=== PATIENT | male | born 1975 | race Caucasian/White ===

== ENCOUNTER 2019-09-19 12:36 | Inpatient (IN) | payer OTHER ==
[~2019-09-19] VITALS: Ht 175.2 cm; Wt 124.0 kg
[~2019-09-19 12:36] MED LIST: ASPIRIN CHEWABL81 MG PO; AUGMENTIN 875 M1 TAB PO; BACTROBAN OINT22 GM PO; BIAXIN FILMTAB250 MG PO; COZAAR50 M1 PO; CRESTOR10 M1 PO; FLONASE ALLERG9.9 ML NAS; KEFLEX500 MG PO; METFORMIN XR500 MG PO; NORVASC10 MG PO; PREVACID30 M2 PO; VICODIN 500 MG-1 TAB PO
[2019-09-19 12:38] VITALS: BP 168/61
[2019-09-19 13:01] LABS: BASO # 0.1 10*3/uL (0.0-0.1); BASO % 0.7 % (0.0-1.0); EOS # 0.2 10*3/uL (0.0-0.4); HEMATOCRIT 46.3 % (42.0-52.0); HEMOGLOBIN 16.2 g/dl (14.0-18.0); LYMPH # 2.4 10*3/uL (1.3-4.4); LYMPH % 34.8 % (27.0-41.0); MEAN CELL VOLUME 92.2 fl (80.0-94.0); MEAN CORPUSCULAR HGB 32.3 pg (27.0-31.0); MEAN PLATELET VOLUME 8.7 fl (9.6-12.3); MONO # 0.6 10*3/uL (0.1-1.0); MONO % 7.9 % (3.0-9.0); NEUT # 3.7 10*3/uL (2.3-7.9); NEUT % 53.2 % (47.0-73.0); PLATELET COUNT AUTOMATED 279 10*3/uL (130-400); RED BLOOD COUNT 5.02 10*6/uL (4.50-5.90); RED CELL DISTRI WIDTH 12.4 % (0-14.5)
[2019-09-19 13:18] LABS: ALBUMIN 4.1 gm/dl (3.1-4.5); ALKALINE PHOSPHATASE 58 U/L (45-117); BUN 8 mg/dl (7-24); CHLORIDE 104 mmol/L (98-107); CREATININE 0.86 mg/dL (0.70-1.30); POTASSIUM 3.5 mmol/L (3.5-5.1); SGOT/AST 17 IU/L (3-35); SGPT/ALT 28 U/L (12-78); SODIUM 138 mmol/L (136-145); TOTAL PROTEIN 8.3 gm/dL (6.4-8.2)
[2019-09-19 13:21] LABS: ACT PARTIAL THROMBO TIME 26.8 SECONDS (20.0-32.1); INTERNATIONAL NORM RATIO 0.9 (2.0-3.5)
[2019-09-19 13:24] LABS: LIPASE 77 U/L (73-393)
[2019-09-19 13:24] LABS: TROPONIN I < 0.015 ng/ml (<0.045)
--- NOTE | 2019-09-19 13:30 | NUR ---
ALL TESTING BUT ESR HAS RETURNED. NO CHANGE IN CONDITION. NO ABNORMALITY OBSERVED THUS FAR ON BEDSIDE MONITOR BESIDES BASELINE DYSRTHYMIA SEEN ON EKG.
[2019-09-19 14:00] VITALS: BP 166/62
--- NOTE | 2019-09-19 15:10 | NUR ---
A 44, admitted to 5E, under the services of BABITA Sifuentes DO with a diagnosis of PALPITATIONS. Chief complaint is PALPITATIONS WHICH STARTED LAST NIGHT ABOUT MIDNIGHT. DENIES CHEST PAIN, NAUSEA OR DIZZINESS WITH PALPITATIONS. JUST STATES IT WAS HAPPENING FREQUENTLY AND IT CONCERNED HIM. STATES THAT HE AND HIS WERE AT THE [place] LAST NIGHT. STATES HE DOES DRINK A LOT OF COFFEE AND ALSO HAD 3 GLASSES OF CAFFEINATED DRINKS AT [facility]. Patient arrived via stretcher from ER. Monitor applied. Initial assessment completed. Vital signs taken and recorded. See assessment for past medical history, medications and allergies. Patient and/or family oriented to unit. [facility] VISITATION POLICY REVIEWED. NASH ANDRES
[2019-09-19 15:14] VITALS: BP 144/66
[2019-09-19] MEDS ORDERED: LEVOTHYROXINE50 MCG PO (15:20)
[2019-09-19] MEDS ORDERED: VITAMIN D35000 UNIT PO (15:21)
[2019-09-19] MEDS ORDERED: METOPROLOL SUCC50 M1 PO (15:21)
[2019-09-19] MEDS ORDERED: MAGNESIUM250 M1 PO (15:22)
--- NOTE | 2019-09-19 15:31 | NUR ---
Notified Carolina Umana that pt is here and med rec updated.
[2019-09-19 16:00] VITALS: BP 144/66; BP 156/85
--- NOTE | 2019-09-19 16:51 | NUR ---
ANSWERING SERVICE WAS NOTIFIED OF DR. KITCHEN CONSULT. RESPONSE OF NOTIFICATION WAS MESSAGE REGARDING CONSULT LEFT WITH AGENT AND THEY STATED THEY WOULD FORWARD THE MESSAGE TO THE PHYSICAN. DR. KITCHEN IS PHYSICAN FORK ASSEMBLER. NASH ANDRES
--- NOTE | 2019-09-19 18:20 | NUR ---
DR. Martinez in and examined pt. States that pt can go home. States there is no reason to keep pt. States to continue the same medications as pt was on at home and he will arrive for outpatient monitor and echo for pt. States he reviewed ekg and monitor strips and other than some PAC's there is nothing abnormal. I spoke with Dr. Cherry. Pt was being seen by Carolina Umana today but she is gone for the day. Dr. Cherry states he is covering Carolina's pt. I notified him of Dr. Martinez's statements that he can be discharged.
--- NOTE | 2019-09-19 18:34 | NUR ---
Dr. Cherry called me back and states they are keeping pt overnight and will dc in AM. States pt just came in and they will keep him over night.
--- NOTE | 2019-09-19 18:37 | NUR ---
I notified pt that I spoke with resident Dr. Cherry who spoke with Dr. Pringle they would like to keep pt overnight just to observe and they will dc tomorrow morning. Pt is agreeable to this.
[2019-09-19 20:00] VITALS: BP 130/64; BP 131/64
[2019-09-20] VITALS: BP 108/52
--- NOTE | 2019-09-20 02:36 | NUR ---
24 HR chart check completed.
[2019-09-20 06:42] LABS: BASO # 0.1 10*3/uL (0.0-0.1); BASO % 0.9 % (0.0-1.0); EOS # 0.3 10*3/uL (0.0-0.4); EOS % 4.4 % (1.0-4.0); HEMATOCRIT 44.5 % (42.0-52.0); HEMOGLOBIN 15.5 g/dl (14.0-18.0); LYMPH # 2.5 10*3/uL (1.3-4.4); LYMPH % 35.1 % (27.0-41.0); MEAN CELL VOLUME 92.3 fl (80.0-94.0); MEAN CORPUSCULAR HGB 32.2 pg (27.0-31.0); MEAN CORPUSCULAR HGB CONC 34.8 g/dl (33.0-37.0); MEAN PLATELET VOLUME 8.8 fl (9.6-12.3); MONO # 0.6 10*3/uL (0.1-1.0); NEUT # 3.5 10*3/uL (2.3-7.9); NEUT % 50.3 % (47.0-73.0); PLATELET COUNT AUTOMATED 260 10*3/uL (130-400); RED BLOOD COUNT 4.82 10*6/uL (4.50-5.90); RED CELL DISTRI WIDTH 12.4 % (0-14.5)
[2019-09-20 07:02] LABS: ALBUMIN 3.4 gm/dl (3.1-4.5); BUN 11 mg/dl (7-24); CHLORIDE 103 mmol/L (98-107); CHOLESTEROL 114 mg/dL (<200); CREATININE 0.83 mg/dL (0.70-1.30); PHOSPHOROUS 3.5 mg/dL (2.5-4.9); POTASSIUM 3.8 mmol/L (3.5-5.1); SGOT/AST 12 IU/L (3-35); SGPT/ALT 26 U/L (12-78); SODIUM 138 mmol/L (136-145); TOTAL PROTEIN 7.4 gm/dL (6.4-8.2); TRIGLYCERIDES 76 mg/dl (<150); VLDL CHOLESTEROL 15 mg/dL (6-40)
[2019-09-20 07:08] LABS: ALKALINE PHOSPHATASE 51 U/L (45-117); FREE T4 0.95 ng/dl (0.76-1.46); HDL CHOLESTEROL 40 mg/dl (40-60); LDL CHOLESTEROL 59 mg/dL (9-159)
[2019-09-20 07:49] LABS: VITAMIN D, 25-HYDROXY 27.2 ng/mL (30-100)
[2019-09-20] MEDS ORDERED: DEBROX15 ML OT (09:09)
--- NOTE | 2019-09-20 09:10 | NUR ---
PT SITTING UP IN BED. ANXIOUS TO GO HOME. RESP-EASY AND REGULAR. DENIES DIZZINESS OR PALPITATIONS. PT STATES HE RECENTLY HAD INNER EAR INFECTION, HAD MEDICATION. STATES ER NURSE CHECKED EAR AN STATES SHE SAID HE HAD WAX IN IT. CALLED DR. WATTS MADE AWARE PT C/O OF INNER EAR PROBLEMS. SHE WILL BE UP TO SEE HIM. CALL LIGHT IN REACH. SEE SHIFT ASSESSMENT.
--- NOTE | 2019-09-20 09:15 | NUR ---
DR. WATTS ON THE FLOOR TO SEE PT.
--- NOTE | 2019-09-20 10:19 | NUR ---
Discharge instructions reviewed with patient/family. Patient receptive and verbalizes understanding. Follow-up care arranged. Written instructions given to patient/family. HEPLOCK REMOVED 2X2 APPLIED. HOLTER MONITOR REMOVED. VISITOR AT HIS SIDE. AMBULATORY OFF THE FLOOR FOR DISCHARGE. MINH GARRISON
== END 2019-09-20 10:19 | disposition home or self-care (01) | DRG 155 ==
LOC: ED 12:36 → EDHOLD 14:31 → 5E 15:05
PROVIDERS: Emergency Medicine; Registered Nurse; ADMIT Internal Medicine
DX: H61.21 Impacted cerumen, right ear (principal); Z68.41 Body mass index [BMI] 40.0-44.9, adult; I10 Essential (primary) hypertension; E78.00 Pure hypercholesterolemia, unspecified; E03.9 Hypothyroidism, unspecified; F41.1 Generalized anxiety disorder; E66.9 Obesity, unspecified; G56.03 Carpal tunnel syndrome, bilateral upper limbs; R00.2 Palpitations; E11.65 Type 2 diabetes mellitus with hyperglycemia; I49.1 Atrial premature depolarization; F12.90 Cannabis use, unspecified, uncomplicated; R00.1 Bradycardia, unspecified; E83.41 Hypermagnesemia; E55.9 Vitamin D deficiency, unspecified; Z87.891 Personal history of nicotine dependence; Z90.89 Acquired absence of other organs; Z82.49 Family history of ischemic heart disease and other diseases of the circulatory system; Z88.2 Allergy status to sulfonamides; Z79.82 Long term (current) use of aspirin; Z79.84 Long term (current) use of oral hypoglycemic drugs; Z79.899 Other long term (current) drug therapy

== ENCOUNTER 2024-11-12 14:49 | Emergency (ER) | payer OTHER ==
[~2024-11-12] VITALS: Ht 175.2 cm; Wt 121.6 kg
[~2024-11-12 14:49] MED LIST changes: +DEBROX15 ML OT; +LEVOTHYROXINE50 MCG PO; +MAGNESIUM250 M1 PO; +METOPROLOL SUCC50 M1 PO; +VITAMIN D35000 UNIT PO
[2024-11-12] MEDS ORDERED: Acetaminophen/Oxycodone 5 MG/325 MG TABLET PO ONE (15:10)
[2024-11-12] MEDS ORDERED: PERCOCET 5-3251 EACH PO (15:26)
== END 2024-11-12 16:11 | disposition home or self-care (01) ==
LOC: ED 14:49
DX: S82.831A Other fracture of upper and lower end of right fibula, initial encounter for closed fracture (principal); I10 Essential (primary) hypertension; E11.9 Type 2 diabetes mellitus without complications; F12.90 Cannabis use, unspecified, uncomplicated; F17.290 Nicotine dependence, other tobacco product, uncomplicated; Z88.2 Allergy status to sulfonamides; Z90.89 Acquired absence of other organs; Z98.890 Other specified postprocedural states; X50.1XXA Overexertion from prolonged static or awkward postures, initial encounter; Y93.89 Activity, other specified; Y92.89 Other specified places as the place of occurrence of the external cause; Y99.8 Other external cause status